=== PATIENT | female | born 1980 | race Two or more races ===

== ENCOUNTER 2018-12-03 20:52 | Emergency (ER) | payer BC, OTHER ==
[~2018-12-03] VITALS: Ht 165.1 cm; Wt 76.2 kg
[2018-12-03 22:53] LABS: Basophils # (auto) 0 uL; Eosinophils # (auto) 0 uL; Hematocrit 29.4 % (36.0-46.0); Lymphocytes # (auto) 1.4 uL; Mean Corpuscular Volume 62.4 fL (80.0-100.0); Monocytes # (auto) 0.7 uL; Neutrophils % (auto) 74.5 % (37.0-80.0); Red Blood Cells 4.71 10^6/uL (4.0-5.20); White Blood Cell 8.5 10^3/uL (4.4-10.8)
[2018-12-03 22:55] LABS: Basophils % (auto) 0.2 % (0.0-2.0); Eosinophils % (auto) 0.4 % (0.0-7.0); Hemoglobin 8.1 g/dL (12.2-16.2); Lymphocytes % (auto) 16.7 % (10.0-50.0); Mean Corpuscular Hemoglobin 17.3 pg (28.0-32.0); Mean Corpuscular Hgb Conc. 27.7 g/dL (32.0-36.0); Monocytes % (auto) 8.2 % (0.0-12.0); Neutrophils # (auto) 6.3 uL; Platelet Count (auto) 426 10^3/uL (140-450)
[2018-12-03 22:59] LABS: INR 0.91 (0.9-1.15); Partial Thromboplastin Time 23.6 sec (23.78-33.04); Prothrombin Time 9.8 sec (9.27-12.13)
[2018-12-03 23:18] LABS: Red Cell Distribution Width 22.5 % (11.8-14.3)
[2018-12-04 09:47] VITALS: BP 92/55
== END 2018-12-04 11:50 | disposition home or self-care (01) ==
LOC: ER 20:52
DX: D64.9 Anemia, unspecified (principal)
CPT/HCPCS: 36415; 85025; 85610; 85730; 86850; 86900; 86901; 86920

== ENCOUNTER 2019-06-09 02:13 | Inpatient (IN) | payer MEDICAID | END 2019-06-10 14:08 | disposition home or self-care (01) | LOC: LDRP 02:13 | PROC: 10E0XZZ Delivery of Products of Conception, External Approach (ICD-10-PCS; principal; ~2019-06-09) | PROC: 0KQM0ZZ Repair Perineum Muscle, Open Approach (ICD-10-PCS; ~2019-06-09) | DX: O77.0 Labor and delivery complicated by meconium in amniotic fluid (principal); O70.1 Second degree perineal laceration during delivery; Z37.0 Single live birth; Z3A.37 37 weeks gestation of pregnancy ==